=== PATIENT | male | born 1995 | race Caucasian/White ===

== ENCOUNTER 2019-11-30 08:19 | Emergency (ER) | payer SELFPAY ==
--- NOTE | 2019-11-30 08:30 | EDM.PDOC ---
ED HPI GENERAL MEDICAL PROBLEM - General Chief Complaint: Back Pain or Injury Stated Complaint: PT FELL AT WORK Time Seen by Provider: 11/30/19 08:29 Source of Information: Reports: Patient - History of Present Illness INITIAL COMMENTS - FREE TEXT/NARRATIVE: HISTORY AND PHYSICAL: History of present illness: [States he was at work today, he slipped and fell landing on his left side to concrete on his left side, he complains of left rib pain his initial complaint was that of back pain but is actually pain across his left lower rib margins in the axilla extending around to the left flank he has no head injury or loss of consciousness no fever nausea vomiting chills sweats no chest pain shortness of breath headache dizziness palpitation no bowel or urine symptoms, pain is 5 out of 10 nonradiating worsened with movement no pain at rest Occurred just prior to arrival Denies prior rib injury ] Review of systems: As per history of present illness and below otherwise all systems reviewed and negative. Past medical history: As per history of present illness and as reviewed below otherwise noncontributory. Surgical history: As per history of present illness and as reviewed below otherwise noncontributory. Social history: No reported history of drug or alcohol abuse. Family history: As per history of present illness and as reviewed below otherwise noncontributory. Physical exam: HEENT: Atraumatic, normocephalic, pupils reactive, negative for conjunctival pallor or scleral icterus, mucous membranes moist, throat clear, neck supple, nontender, trachea midline. Lungs: Clear to auscultation, breath sounds equal bilaterally, chest nontender on the right, on the left side he has tenderness on the lower rib margins extending around to the flank. Bruising present Heart: S1S2, regular, negative for clicks, rubs, or JVD. Abdomen: Soft, nondistended, nontender. Negative for masses or hepatosplenomegaly. Negative for costovertebral tenderness. Pelvis: Stable nontender. Genitourinary: Deferred. Rectal: Deferred. Extremities: Atraumatic, negative for cords or calf pain. Neurovascular unremarkable. Neuro: Awake, alert, oriented. Cranial nerves II through XII unremarkable. Cerebellum unremarkable. Motor and sensory unremarkable throughout. Exam nonfocal. Diagnostics: [With left ribs plain films ] Therapeutics: [norco 20 pound weight limit follow-up with [facility] ] Impression: [Contusion Chest wall pain] Definitive disposition and diagnosis as appropriate pending reevaluation and review of above. Left lower back Pain Score (Numeric/FACES): 7 - Related Data Allergies Allergy/AdvReac Type Severity Reaction Status Date / Time No Known Allergies Allergy Verified 11/30/19 08:35 Home Meds: Home Meds . [No Known Home Meds] 11/30/19 [History] ED ROS GENERAL - Review of Systems Review Of Systems: See Below ED EXAM, GENERAL - Physical Exam Exam: See Below Course - Vital Signs Last Recorded V/S: Last Vital Signs Temp 98.4 F 11/30/19 08:35 Pulse 92 11/30/19 08:35 Resp 16 11/30/19 08:35 BP 155/97 H 11/30/19 08:35 Pulse Ox 97 11/30/19 08:35 - Orders/Labs/Meds Labs: Laboratory Tests 11/30/19 Range/Units 09:06 Urine Color DARK YELLOW Urine Appearance CLEAR Urine pH 5.5 (5.0-8.0) Ur Specific Mcwilliams >= 1.030 (1.001-1.035) Urine Protein NEGATIVE (NEGATIVE) mg/dL Urine Glucose (UA) NEGATIVE (NEGATIVE) mg/dL Urine Ketones NEGATIVE (NEGATIVE) mg/dL Urine Occult Blood NEGATIVE (NEGATIVE) Urine Nitrite NEGATIVE (NEGATIVE) Urine Bilirubin NEGATIVE (NEGATIVE) Urine Urobilinogen 0.2 (<2.0) EU/dL Ur Leukocyte Esterase NEGATIVE (NEGATIVE) Departure - Departure Time of Disposition: 10:56 Disposition: Home, Self-Care 01 Condition: Good Clinical Impression: Closed rib fracture - Discharge Information Referrals: PCP,None [Primary Care Provider] - Forms: ED Department Discharge Additional Instructions: Patient is prescribed Return if symptoms persist or worsen 20 pound weight limit Otherwise activity as tolerated follow With occupational health for further restrictions and/or work clearance [facility] [address] [address] The following information is given to patients seen in the emergency department who are being discharged to home. This information is to outline your options for follow-up care. We provide all patients seen in our emergency department with a follow-up referral. The need for follow-up, as well as the timing and circumstances, are variable depending upon the specifics of your emergency department visit. If you don't have a primary care physician on staff, we will provide you with a referral. We always advise you to contact your personal physician following an emergency department visit to inform them of the circumstance of the visit and for follow-up with them and/or the need for any referrals to a consulting specialist. The emergency department will also refer you to a specialist when appropriate. This referral assures that you have the opportunity for follow-up care with a specialist. All of these measure are taken in an effort to provide you with optimal care, which includes your follow-up. Under all circumstances we always encourage you to contact your private physician who remains a resource for coordinating your care. When calling for follow-up care, please make the office aware that this follow-up is from your recent emergency room visit. If for any reason you are refused follow-up, please contact the [facility] emergency department at and asked to speak to the emergency department charge nurse. Sepsis Event Note - Focused Exam Vital Signs: Vital Signs Temp Pulse Resp BP Pulse Ox 11/30/19 08:35 98.4 F 92 16 155/97 H 97 Date Exam was Performed: 11/30/19 Time Exam was Performed: 10:54
--- NOTE | 2019-11-30 09:15 | CR ---
Chest and left ribs: Frontal view of the chest was obtained as well as 4 additional views of the left ribs. Comparison: No previous chest or rib exam. Heart size and mediastinum are normal. Lungs are clear with no acute parenchymal change. Very slight deformity is noted within the anterolateral 7th rib. Uncertain if this is due to old fracture or acute fracture. Minimal deformity is noted within the anterolateral 8th rib which is most likely old. No additional abnormality is appreciated within the left ribs. Impression: 1. Probable old fracture within the left anterolateral 8th rib. 2. Acute or old fracture within the left anterolateral 7th rib. 3. Nothing acute seen on accompanying chest x-ray. Diagnostic code #3 This report was dictated in [place] Standard Time
== END 2019-11-30 11:07 | disposition home or self-care (01) ==
LOC: MW.ED 08:19
DX: S22.32XA Fracture of one rib, left side, initial encounter for closed fracture (principal); W01.0XXA Fall on same level from slipping, tripping and stumbling without subsequent striking against object, initial encounter; Y99.0 Civilian activity done for income or pay
CPT/HCPCS: 71101-26-LT; 71101-LT; 81003; 99283; 99283-25